=== PATIENT | female | born 1980 | race African-American/Black ===

== ENCOUNTER → 2019-11-19 | Outpatient (CLI) | payer OTHER | LOC: ULTRA 11:46 | PROVIDERS: ATTEND Nurse Practitioner | DX: M79.89 Other specified soft tissue disorders (principal) ==

== ENCOUNTER → 2019-12-28 | Outpatient (CLI) | payer OTHER | LOC: SJCVCIMAG 14:43 | PROVIDERS: ATTEND Nuclear Medicine Nuclear Cardiology | DX: M79.662 Pain in left lower leg (principal); M79.89 Other specified soft tissue disorders; M79.661 Pain in right lower leg; I82.90 Acute embolism and thrombosis of unspecified vein ==

== ENCOUNTER → 2020-01-21 | Outpatient (CLI) | payer OTHER | LOC: ULTRA 10:58 | PROVIDERS: ATTEND Family Medicine | DX: N83.201 Unspecified ovarian cyst, right side (principal); R10.2 Pelvic and perineal pain ==